=== PATIENT | female | born 2000 | race Caucasian/White ===

== ENCOUNTER 2021-11-24 20:51 | Emergency (ER) | payer OTHER ==
[~2021-11-24 20:51] MED LIST: IBUPROFEN800 MG PO
[2021-11-24 21:22] LABS: HEMOGLOBIN 11.6 gm/dl (12.3-15.3); RED BLOOD COUNT 3.88 M/UL (4.00-5.10); WHITE BLOOD COUNT 9.6 K/UL (4.5-11.0)
[2021-11-24 21:41] LABS: BUN/CREATININE RATIO 7 (0-10)
[2021-11-24] MEDS ORDERED: MACROBID 100 M100 MG PO (22:45)
== END 2021-11-24 22:50 | disposition home or self-care (01) ==
LOC: ER1 20:51
PROVIDERS: Physician Assistant
DX: O16.2 Unspecified maternal hypertension, second trimester (principal); O23.42 Unspecified infection of urinary tract in pregnancy, second trimester; N39.0 Urinary tract infection, site not specified; Z3A.20 20 weeks gestation of pregnancy
CPT/HCPCS: 80053; 81001; 85025; 99284

== ENCOUNTER 2022-01-19 20:25 | Outpatient (CLI) | payer OTHER ==
[~2022-01-19 20:25] MED LIST changes: +MACROBID 100 M100 MG PO
== END 2022-01-19 21:49 | disposition home or self-care (01) ==
LOC: GENOP 20:25
DX: O47.03 False labor before 37 completed weeks of gestation, third trimester (principal); O99.613 Diseases of the digestive system complicating pregnancy, third trimester; K21.9 Gastro-esophageal reflux disease without esophagitis; Z3A.28 28 weeks gestation of pregnancy
CPT/HCPCS: 81001; G0463

== ENCOUNTER 2022-04-07 16:24 | Inpatient (IN) | payer OTHER ==
[~2022-04-07] VITALS: Ht 165.1 cm; Wt 129.7 kg
[2022-04-07 17:28] LABS: HEMOGLOBIN 11.1 gm/dl (12.3-15.3); RED BLOOD COUNT 3.74 M/UL (4.00-5.10); WHITE BLOOD COUNT 9.3 K/UL (4.5-11.0)
[2022-04-07] MEDS ORDERED: EXPECTA PRENAT1 EACH PO (19:02)
[2022-04-07] MEDS ORDERED: LABETALOL HCL200 MG PO (19:02)
[2022-04-07] MEDS ORDERED: PEPCID20 MG PO (19:03)
[2022-04-09] MEDS ORDERED: PERCOCET 5-3251 EACH PO (16:54)
[2022-04-09] MEDS ORDERED: FERROUS SULFAT325 MG PO (16:54)
[2022-04-09] MEDS ORDERED: COLACE100 MG PO (16:54)
[2022-04-09] MEDS ORDERED: IBUPROFEN600 MG PO (16:54)
[2022-04-10 06:17] LABS: HEMOGLOBIN 9.1 gm/dl (12.3-15.3)
== END 2022-04-10 12:00 | disposition home or self-care (01) | DRG 787 ==
LOC: GENOP 16:24 → OB 16:50
PROVIDERS: ADMIT Obstetrics & Gynecology
PROC: 4A1HXCZ Monitoring of Products of Conception, Cardiac Rate, External Approach (ICD-10-PCS; 2022-04-09)
PROC: 10907ZC Drainage of Amniotic Fluid, Therapeutic from Products of Conception, Via Natural or Artificial Opening (ICD-10-PCS; 2022-04-09)
PROC: 10D00Z1 Extraction of Products of Conception, Low, Open Approach (ICD-10-PCS; principal; 2022-04-09 15:20)
DX: O10.92 Unspecified pre-existing hypertension complicating childbirth (principal); D62 Acute posthemorrhagic anemia; Z20.822 Contact with and (suspected) exposure to COVID-19; O99.214 Obesity complicating childbirth; Z3A.39 39 weeks gestation of pregnancy; E66.9 Obesity, unspecified; O62.2 Other uterine inertia; O90.81 Anemia of the puerperium; Z37.0 Single live birth; Z28.310 Unvaccinated for COVID-19; Z87.891 Personal history of nicotine dependence; Z80.1 Family history of malignant neoplasm of trachea, bronchus and lung; Z80.8 Family history of malignant neoplasm of other organs or systems; Z83.3 Family history of diabetes mellitus
CPT/HCPCS: 81001; 82800; 85014; 85018; 85025; C9113; J0595; J0690; J0694; J1170; J1885; J2250; J2274; J2370; J2405; J2590

== ENCOUNTER 2022-05-15 18:29 | Emergency (ER) | payer OTHER ==
[~2022-05-15 18:29] MED LIST changes: +COLACE100 MG PO; +EXPECTA PRENAT1 EACH PO; +FERROUS SULFAT325 MG PO; +IBUPROFEN600 MG PO; +LABETALOL HCL200 MG PO; +PEPCID20 MG PO; +PERCOCET 5-3251 EACH PO
[2022-05-15 19:47] LABS: HEMOGLOBIN 10.7 gm/dl (12.3-15.3); RED BLOOD COUNT 3.99 M/UL (4.00-5.10)
[2022-05-15 20:08] LABS: BUN/CREATININE RATIO 20 (0-10)
== END 2022-05-15 21:15 | disposition home or self-care (01) ==
LOC: ER1 18:29
PROVIDERS: Emergency Medicine
DX: R10.11 Right upper quadrant pain (principal); I10 Essential (primary) hypertension
CPT/HCPCS: 80053; 81001; 83690; 85025; 99283

== ENCOUNTER 2022-06-06 22:02 | Emergency (ER) | payer OTHER ==
[2022-06-06 22:47] LABS: HEMOGLOBIN 11.4 gm/dl (12.3-15.3); RED BLOOD COUNT 4.29 M/UL (4.00-5.10)
[2022-06-06 23:11] LABS: BUN/CREATININE RATIO 18 (0-10)
[2022-06-07] MEDS ORDERED: ZOFRAN ODT 4 MG4 MG PO (03:36)
[2022-06-07] MEDS ORDERED: AMOX TR-K CLV1 EAC4 PO (03:36)
[2022-06-07] MEDS ORDERED: BENTYL 20MG TAB20 MG PO (03:36)
== END 2022-06-07 03:45 | disposition home or self-care (01) ==
LOC: ER1 22:02
PROVIDERS: Nurse Practitioner
DX: K81.0 Acute cholecystitis (principal); I10 Essential (primary) hypertension; F17.210 Nicotine dependence, cigarettes, uncomplicated
CPT/HCPCS: 80053; 80076; 81001; 83605; 83690; 84703; 85025; 99284; Q9967